=== PATIENT | female | born 1995 | race Caucasian/White ===

== ENCOUNTER 2017-04-27 06:43 | Emergency (ER) | payer OTHER ==
[2017-04-27 07:14] VITALS: TEMP 97.9
[2017-04-27] MEDS ORDERED: SODIUM CHLORIDE 0.9% 1,000 ML IV STA (08:25)
[2017-04-27] MEDS ORDERED: RX INFO: IV CONTRAST WAS GIVEN 1 EACH MISC MISCELLANE PRN (08:25)
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
[2017-04-27 08:50] LABS: Basophils # (A) 0.1 k/uL (0-0.2); Basophils % (A) 1 %; CH 28.8; CHCM 33.2; Eosinophils # (A) 0.3 k/uL (0-0.7); Eosinophils % (A) 3 %; HCT 40.7 % (34.0-46.0); HDW 2.33; HGB 14.2 gm/dL (11.4-16.0); Luc # (Auto) 0.19; Luc % (Auto) 2; Lymphocytes # (A) 2.9 k/uL (1.0-4.8); Lymphocytes % (A) 29 %; MCH 30.2 pg (25.0-35.0); MCHC 34.7 g/dL (31.0-37.0); MCV 86.9 fL (80.0-100.0); Mean Platelet Volume 7.3; Monocytes # (A) 0.6 k/uL (0-1.0); Monocytes % (A) 6 %; Neutrophils # (A) 5.9 k/uL (1.3-7.7); Neutrophils % (A) 59 %; RBC 4.69 m/uL (3.80-5.40); RDW 12.9 % (11.5-15.5); WBC (Perox) 9.32
[2017-04-27 09:01] LABS: ALT 19 U/L (9-52); AST 18 U/L (14-36); Alkaline Phosphatase 74 U/L (38-126); Anion Gap 11 mmol/L; Blood Urea Nitrogen 9 mg/dL (7-17); Calcium 9.6 mg/dL (8.4-10.2); Carbon Dioxide 27 mmol/L (22-30); Chloride 104 mmol/L (98-107); Glucose 95 mg/dL (74-99); Non-African American GFR(MDRD) >60 (>60 ml/min/1.73 sqM); Sodium 142 mmol/L (137-145); Total Bilirubin 0.4 mg/dL (0.2-1.3); Total Protein 7.5 g/dL (6.3-8.2)
[2017-04-27 09:04] LABS: Appearance,Urine Clear (Clear); Bilirubin,Urine Negative (Negative); Glucose,Urine (UA) Negative (Negative); Ketones,Urine Negative (Negative); Leukocyte Esterase,Urine Negative (Negative); Nitrite,Urine Negative (Negative); Protein,Urine Negative (Negative); Specific Gravity,Urine 1.003 (1.001-1.035); UA Billing (MACRO vs. MICRO) CHEM; Urobilinogen,Urine <2.0 mg/dL (<2.0)
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
[2017-04-27] MEDS ORDERED: KETOROLAC 30 MG/ML 1 ML VIAL IVP STA (10:14)
[2017-04-27] MEDS ORDERED: ORPHENADRINE 30 MG/ML 2 ML VIAL IVP STA (10:14)
[2017-04-27] MEDS ORDERED: ORPHENADRINE 30 MG/ML 2 ML VIAL IM STA (10:32)
[2017-04-27 10:38] VITALS: BP 119/75; PULSE 70; RESP 18
== END 2017-04-27 10:54 | disposition home or self-care (01) ==
LOC: EC 06:43
DX: S39.012A Strain of muscle, fascia and tendon of lower back, initial encounter (principal); R10.9 Unspecified abdominal pain; V48.5XXA Car driver injured in noncollision transport accident in traffic accident, initial encounter; Z53.8 Procedure and treatment not carried out for other reasons
CPT/HCPCS: 36415; 80053; 85025; 81003; 81025; 74177; 99284; 96374; 96361 ×2; 96372; J2360; J1885; Q9967

== ENCOUNTER 2017-06-01 12:15 | Emergency (ER) | payer OTHER ==
[2017-06-01] MEDS ORDERED: SODIUM CHLORIDE 0.9% 500 ML IV STA (12:37)
--- NOTE | 2017-06-01 12:59 | ED ---
General Adult HPI - General Chief complaint: Abdominal Pain Stated complaint: Female Time Seen by Provider: 06/01/17 12:22 Source: patient, RN notes reviewed Mode of arrival: ambulatory Limitations: no limitations - History of Present Illness Initial comments: 22-year-old female presents to the emergency Department chief complaint of mild abdominal cramping. Patient states she's had this for the past 2 days. Patient states she had a miscarriage on March 27. Patient states that she was diagnosed at the hospital. Patient states never followed up with her OB for her tests at home didn't go to 0. Patient states now she hasn't had her menstrual cycle so she was concerned. Patient states she started having some abdominal cramping without bleeding over the past few weeks so she was concerned because it just does not seem to be improving. Patient denies any fever chills with this. Patient denies any cough cold. Patient was concerned due to her symptoms so she thought that she should be evaluated.Patient denies any recent fever, chills, shortness of breath, chest pain, back pain, nausea vomiting, numbness or tingling, dysuria or hematuria, constipation or diarrhea, headaches or visual changes, or any other current symptoms. - Related Data Home Medications Medication Instructions Recorded Confirmed No Known Home Medications [No 06/01/17 06/01/17 Known Home Medications] Allergies Allergy/AdvReac Type Severity Reaction Status Date / Time No Known Allergies Allergy Verified 06/01/17 13:50 Review of Systems ROS Statement: Those systems with pertinent positive or pertinent negative responses have been documented in the HPI. ROS Other: All systems not noted in ROS Statement are negative. Past Medical History Past Medical History: No Reported History History of Any Multi-Drug Resistant Organisms: None Reported Past Surgical History: Section Past Psychological History: Anxiety Smoking Status: Never smoker Past Alcohol Use History: None Reported Past Drug Use History: None Reported General Exam - General Exam Comments Initial Comments: General: The patient is awake and alert, in no distress, and does not appear acutely ill. Eye: Pupils are equal, round. Ears, nose, mouth and throat: There are moist mucous membranes. Neck: The neck is supple, there is no tenderness. Cardiovascular: There is a regular rate and rhythm. No murmur, rub or gallop is appreciated. Respiratory: Lungs are clear to auscultation, respirations are non-labored, breath sounds are equal. No wheezes, stridor, rales, or rhonchi. Gastrointestinal: Soft, non-distended, non-tender abdomen without masses or organomegaly noted. There is no rebound or guarding present. No CVA tenderness. Bowel sounds are unremarkable. Back: There is no tenderness to palpation in the midline. There is no obvious deformity. No rashes noted. Musculoskeletal:Pulses equal bilaterally 2+. Neurological: CN II-XII intact, There are no obvious motor or sensory deficits. Coordination appears grossly intact. Speech is normal. Skin: Skin is warm and dry and no rashes or lesions are noted. Psychiatric: Cooperative, appropriate mood & affect, normal judgment. Limitations: no limitations Course Vital Signs 06/01/17 12:17 Temperature 98.1 F Pulse Rate 84 Respiratory 20 Rate Blood Pressure 137/80 O2 Sat by Pulse 98 Oximetry Medical Decision Making - Medical Decision Making 22-year-old female presents emergency department with a chief complaint of abdominal cramping. This and laboratory is reviewed. patient does appear to have a left ovarian cyst. we did give her follow-up with senior escrow officer. we discussed return parameters all the questions. she stated that she understood and she is given plan. she will be discharged. - Lab Data Result diagrams: 06/01/17 12:50 06/01/17 12:50 Lab Results 06/01/17 06/01/17 06/01/17 Range/Units 12:50 12:50 12:50 WBC 8.9 (3.8-10.6) k/uL RBC 4.92 (3.80-5.40) m/uL Hgb 14.0 (11.4-16.0) gm/dL Hct 43.5 (34.0-46.0) % MCV 88.5 (80.0-100.0) fL MCH 28.6 (25.0-35.0) pg MCHC 32.3 (31.0-37.0) g/dL RDW 13.7 (11.5-15.5) % Plt Count 333 (150-450) k/uL Neutrophils % 56 % Lymphocytes % 34 % Monocytes % 6 % Eosinophils % 2 % Basophils % 1 % Neutrophils # 5.0 (1.3-7.7) k/uL Lymphocytes # 3.1 (1.0-4.8) k/uL Monocytes # 0.5 (0-1.0) k/uL Eosinophils # 0.2 (0-0.7) k/uL Basophils # 0.1 (0-0.2) k/uL Sodium 140 (137-145) mmol/L Potassium 4.1 (3.5-5.1) mmol/L Chloride 104 (98-107) mmol/L Carbon Dioxide 24 (22-30) mmol/L Anion Gap 12 mmol/L BUN 12 (7-17) mg/dL Creatinine 0.74 (0.52-1.04) mg/dL Est GFR (MDRD) Af Amer >60 (>60 ml/min/1.73 sqM) Est GFR (MDRD) Non-Af >60 (>60 ml/min/1.73 sqM) Glucose 82 (74-99) mg/dL Calcium 9.7 (8.4-10.2) mg/dL Total Bilirubin 0.3 (0.2-1.3) mg/dL AST 20 (14-36) U/L ALT 29 (9-52) U/L Alkaline Phosphatase 61 (38-126) U/L Total Protein 7.4 (6.3-8.2) g/dL Albumin 4.5 (3.5-5.0) g/dL HCG, Quant <2.4 mIU/mL Urine Color Urine Appearance (Clear) Urine pH (5.0-8.0) Ur Specific Carson (1.001-1.035) Urine Protein (Negative) Urine Glucose (UA) (Negative) Urine Ketones (Negative) Urine Blood (Negative) Urine Nitrite (Negative) Urine Bilirubin (Negative) Urine Urobilinogen (<2.0) mg/dL Ur Leukocyte Esterase (Negative) Urine RBC (0-5) /hpf Urine WBC (0-5) /hpf Ur Squamous Epith Cells (0-4) /hpf Urine Bacteria (None) /hpf Urine Mucus (None) /hpf Blood Type A Positive Blood Type Recheck A Pos 06/01/17 Range/Units 12:50 WBC (3.8-10.6) k/uL RBC (3.80-5.40) m/uL Hgb (11.4-16.0) gm/dL Hct (34.0-46.0) % MCV (80.0-100.0) fL MCH (25.0-35.0) pg MCHC (31.0-37.0) g/dL RDW (11.5-15.5) % Plt Count (150-450) k/uL Neutrophils % % Lymphocytes % % Monocytes % % Eosinophils % % Basophils % % Neutrophils # (1.3-7.7) k/uL Lymphocytes # (1.0-4.8) k/uL Monocytes # (0-1.0) k/uL Eosinophils # (0-0.7) k/uL Basophils # (0-0.2) k/uL Sodium (137-145) mmol/L Potassium (3.5-5.1) mmol/L Chloride (98-107) mmol/L Carbon Dioxide (22-30) mmol/L Anion Gap mmol/L BUN (7-17) mg/dL Creatinine (0.52-1.04) mg/dL Est GFR (MDRD) Af Amer (>60 ml/min/1.73 sqM) Est GFR (MDRD) Non-Af (>60 ml/min/1.73 sqM) Glucose (74-99) mg/dL Calcium (8.4-10.2) mg/dL Total Bilirubin (0.2-1.3) mg/dL AST (14-36) U/L ALT (9-52) U/L Alkaline Phosphatase (38-126) U/L Total Protein (6.3-8.2) g/dL Albumin (3.5-5.0) g/dL HCG, Quant mIU/mL Urine Color Yellow Urine Appearance Cloudy H (Clear) Urine pH 5.0 (5.0-8.0) Ur Specific [place] 1.016 (1.001-1.035) Urine Protein Negative (Negative) Urine Glucose (UA) Negative (Negative) Urine Ketones Negative (Negative) Urine Blood Negative (Negative) Urine Nitrite Negative (Negative) Urine Bilirubin Negative (Negative) Urine Urobilinogen <2.0 (<2.0) mg/dL Ur Leukocyte Esterase Small H (Negative) Urine RBC 2 (0-5) /hpf Urine WBC 1 (0-5) /hpf Ur Squamous Epith Cells 19 H (0-4) /hpf Urine Bacteria Rare H (None) /hpf Urine Mucus Rare H (None) /hpf Blood Type Blood Type Recheck - Radiology Data Radiology results: report reviewed, image reviewed Disposition Clinical Impression: Left ovarian cyst Disposition: HOME SELF-CARE Condition: Stable Instructions: Ovarian Cyst (ED) Additional Instructions: Please use medication as discussed. Please follow up with family doctor if symptoms have not improved over the next two days. Please return to the emergency room if your symptoms increase or worsen or for any other concerns. Referrals: Marvel Stuart MD [Primary Care Provider] - 1-2 days Evon Sotelo DO [Doctor of Osteopathic Medicine] - 1-2 days Time of Disposition: 13:57
[2017-06-01 13:09] LABS: Basophils # (A) 0.1 k/uL (0-0.2); Basophils % (A) 1 %; CHCM 32.9; Eosinophils # (A) 0.2 k/uL (0-0.7); Eosinophils % (A) 2 %; HCT 43.5 % (34.0-46.0); HDW 2.25; Luc # (Auto) 0.15; Luc % (Auto) 2; Lymphocytes # (A) 3.1 k/uL (1.0-4.8); Lymphocytes % (A) 34 %; MCH 28.6 pg (25.0-35.0); MCHC 32.3 g/dL (31.0-37.0); MCV 88.5 fL (80.0-100.0); Mean Platelet Volume 7.5; Monocytes # (A) 0.5 k/uL (0-1.0); Monocytes % (A) 6 %; Neutrophils % (A) 56 %; RBC 4.92 m/uL (3.80-5.40); RDW 13.7 % (11.5-15.5); WBC 8.9 k/uL (3.8-10.6); WBC (Perox) 8.91
[2017-06-01 13:11] LABS: Appearance,Urine Cloudy (Clear); Bacteria,Urine Rare /hpf; Bilirubin,Urine Negative (Negative); Glucose,Urine (UA) Negative (Negative); Ketones,Urine Negative (Negative); Leukocyte Esterase,Urine Small (Negative); Mucus,Urine Rare /hpf; Nitrite,Urine Negative (Negative); Particle Count 10276; Protein,Urine Negative (Negative); RBC,Urine 2 /hpf (0-5); Specific Gravity,Urine 1.016 (1.001-1.035); Squamous Epithelial Cell,Urine 19 /hpf (0-4); UA Billing (MACRO vs. MICRO) MICRO; Urobilinogen,Urine <2.0 mg/dL (<2.0); WBC,Urine 1 /hpf (0-5)
[2017-06-01 13:20] LABS: ALT 29 U/L (9-52); AST 20 U/L (14-36); Alkaline Phosphatase 61 U/L (38-126); Anion Gap 12 mmol/L; Blood Urea Nitrogen 12 mg/dL (7-17); Calcium 9.7 mg/dL (8.4-10.2); Carbon Dioxide 24 mmol/L (22-30); Chloride 104 mmol/L (98-107); Glucose 82 mg/dL (74-99); Non-African American GFR(MDRD) >60 (>60 ml/min/1.73 sqM); Potassium 4.1 mmol/L (3.5-5.1); Sodium 140 mmol/L (137-145); Total Bilirubin 0.3 mg/dL (0.2-1.3); Total Protein 7.4 g/dL (6.3-8.2)
[2017-06-01 13:35] LABS: HCG,Quantitative Serum <2.4 mIU/mL
--- NOTE | 2017-06-01 13:55 | US ---
EXAMINATION TYPE: US transvaginal DATE OF EXAM: 06/01/2017 COMPARISON: 03/26/2014 prior pelvic ultrasound, current CT abdomen pelvis 04/27/2017 CLINICAL HISTORY: Pain. Miscarriage March 28, no period since TECHNIQUE: Transvaginal (TV) Date of LMP: sometime in January EXAM MEASUREMENTS: Uterus: 8.2 x 3.9 x 5.6 cm Endometrial Stripe: 0.6 cm Right Ovary: not visualized Left Ovary: 3.3 x 3.4 x 4.1 cm 1. Uterus: Anteverted 2. Endometrium: wnl 3. Right Ovary: Obscured by overlying bowel gas 4. Left Ovary: complex cyst measuring 2.9 x 3.0 x 3.2 cm Spectral, color and waveform doppler imaging shows good arterial and venous flow within the left ov donte; there is no evidence for ovarian torsion. 5. Bilateral Adnexa: wnl 6. Posterior cul-de-sac: no free fluid IMPRESSION: Cystic lesion associated with the left ovary could represent endometrioma, hemorrhagic cy st, follow-up is suggested
[2017-06-01 14:14] VITALS: BP 134/7; PULSE 74; RESP 17; TEMP 98.7
== END 2017-06-01 14:12 | disposition home or self-care (01) ==
LOC: EC 12:15
DX: N83.202 Unspecified ovarian cyst, left side (principal)
CPT/HCPCS: 36415; 76830; 80053; 81001; 84702; 85025; 86900; 86901; 93976; 96360; 99284

== ENCOUNTER 2019-05-05 03:12 | Emergency (ER) | payer OTHER ==
[2019-05-05 03:20] VITALS: RESP 18; TEMP 98.3
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
[2019-05-05 04:41] VITALS: BP 121/77; PULSE 69
== END 2019-05-05 04:40 | disposition home or self-care (01) ==
LOC: EC 03:12
DX: J02.8 Acute pharyngitis due to other specified organisms (principal)
CPT/HCPCS: 99283

== ENCOUNTER 2019-05-31 10:07 | Emergency (ER) | payer OTHER ==
--- NOTE | 2019-05-31 10:40 | ED ---
General Adult HPI - General Chief complaint: Neck Pain/Injury Stated complaint: Neck Pain, Facial Numbness Time Seen by Provider: 05/31/19 10:15 Source: patient Mode of arrival: wheelchair Limitations: no limitations - History of Present Illness Initial comments: Patient is a 24-year-old female presenting to the emergency Department with complaints of neck pain times one month as well as facial numbness times one day. Patient states her neck pain has been an ongoing issue for sometime now. Patient states her PCP started her on acid reflux medication which has helped some of the pain in the front of her neck but she is still expecting pain in the back of the neck. Patient states about a month ago she had an injury where she was roughhousing with family and they spun around her neck. Patient states she did not have pain at the time but a few days later started developing a sore neck. Patient states she has pain and soreness with neck range of motion. Patient denies any recent fever, chills, illnesses. Patient admits to being about 5 weeks at this time, so she is only trying Tylenol for pain relief which is not working. Patient denies any other injuries or trauma to her neck. Patient states her mouth feels tingly. No other complaints at this time. - Related Data Home Medications Medication Instructions Recorded Confirmed Omeprazole 40 mg PO DAILY 05/31/19 05/31/19 Pedi Multivit No.25/Folic Acid 300 mcg PO DAILY 05/31/19 05/31/19 [Flintstones Multivit Chew Tab] Allergies Allergy/AdvReac Type Severity Reaction Status Date / Time No Known Allergies Allergy Verified 05/31/19 10:34 Review of Systems ROS Statement: Those systems with pertinent positive or pertinent negative responses have been documented in the HPI. ROS Other: All systems not noted in ROS Statement are negative. Past Medical History Past Medical History: No Reported History Additional Past Medical History / Comment(s): ectopic , two miscarriages, History of Any Multi-Drug Resistant Organisms: None Reported Past Surgical History: Section Past Psychological History: Anxiety Smoking Status: Never smoker Past Alcohol Use History: None Reported Past Drug Use History: None Reported General Exam - General Exam Comments Initial Comments: GENERAL: Well-appearing, well-nourished and in no acute distress. She is 5 weeks . HEAD: Atraumatic, normocephalic. EYES: Pupils equal round and reactive to light, extraocular movements intact, sclera anicteric, conjunctiva are normal. ENT: TMs normal, nares patent, oropharynx clear without exudates. Moist mucous membranes. Patient has equal, bilateral sensation of the face. NECK: Normal range of motion, supple without lymphadenopathy or JVD. Muscle soreness with end range of motion. Pain with palpation of bilateral upper traps and cervical paraspinals. LUNGS: Breath sounds clear to auscultation bilaterally and equal. No wheezes rales or rhonchi. HEART: Regular rate and rhythm without murmurs, rubs or gallops. ABDOMEN: Soft, nontender, normoactive bowel sounds. No guarding, no rebound. No masses appreciated. : Deferred EXTREMITIES: Normal range of motion, no pitting or edema. No clubbing or cyanosis. NEUROLOGICAL: Cranial nerves II through XII grossly intact. Normal speech, normal gait. PSYCH: Normal mood, normal affect. SKIN: Warm, Dry, normal turgor, no rashes or lesions noted. Limitations: no limitations Course Vital Signs 05/31/19 05/31/19 10:10 12:17 Temperature 98.9 F 98.6 F Pulse Rate 118 H 105 H Respiratory 20 18 Rate Blood Pressure 132/71 121/84 O2 Sat by Pulse 99 97 Oximetry Medical Decision Making - Medical Decision Making Patient is a 24-year-old female who is 5 weeks with complaints of neck pain that has been ongoing for 1 month as well as complaints of facial numbness. Vital signs are stable, afebrile. On exam patient has equal, bilateral sensation of the face. Neuro exam is normal. Patient has some tenderness to palpation of the cervical paraspinals as well as bilateral upper traps. Patient was persistent about receiving an x-ray of her neck. Patient's cervical x-ray was within normal limits. No acute fractures dislocations. Soft tissue appears normal. Patient was given Tylenol for her pain. It was discussed with patient that physical therapy on her neck would be of benefit since she is . Patient agrees to follow up with her PCP and/or [facility] [facility] for PT referral. Patient is stable for discharge. Return parameters were discussed with patient she verbalized understanding. Case discussed with Dr. Treviño. Disposition Clinical Impression: Neck pain Disposition: HOME SELF-CARE Condition: Stable Instructions (If sedation given, give patient instructions): Cervical Strain (ED) Additional Instructions: Please return to the Emergency Department if symptoms worsen or any other concerns. Follow-up with PCP and/or [facility] [facility] for further management, PT referral. Take Tylenol for pain, heat and ice to the area. Is patient prescribed a controlled substance at d/c from ED?: No Referrals: Marvel Stuart MD [Primary Care Provider] - 1-2 days
--- NOTE | 2019-05-31 11:32 | XR ---
EXAMINATION TYPE: XR cervical spine limited DATE OF EXAM: 05/31/2019 TECHNIQUE: Frontal, lateral, and open mouth view of the cervical spine are obtained. HISTORY: Pain COMPARISON: None FINDINGS: The cervical spine is visualized in its entirety from C1 thru the top of T1 level, it is s traightened in alignment without evidence of acute fracture or dislocation. The pre-vertebral soft t issue appears within normal limits. The C1-C2 articulation is within normal limits on the open mouth view. Vertebral body heights and disc space heights are maintained. Overlying soft tissue is unremar kable. IMPRESSION: As above.
[2019-05-31] MEDS ORDERED: ACETAMINOPHEN TAB 325 MG TAB PO STA (11:49)
[2019-05-31 12:18] VITALS: BP 121/84; PULSE 105; RESP 18; TEMP 98.6
== END 2019-05-31 12:28 | disposition home or self-care (01) ==
LOC: EC 10:07
DX: O99.89 Other specified diseases and conditions complicating pregnancy, childbirth and the puerperium (principal); M54.2 Cervicalgia; R20.0 Anesthesia of skin; Z3A.01 Less than 8 weeks gestation of pregnancy; Z79.899 Other long term (current) drug therapy; Z87.59 Personal history of other complications of pregnancy, childbirth and the puerperium
CPT/HCPCS: 72040; 99283